=== PATIENT | female | born 1980 | race African-American/Black ===

== ENCOUNTER 2017-07-05 19:47 | Inpatient (IN) ==
[2017-07-05] MEDS ORDERED: cefTRIAXone 1,000 MG in SODIUM CHLORIDE 0.9% 100 ML IV STA (22:15)
[2017-07-05] MEDS ORDERED: methylPREDNISolone SOD SUC 125 MG/2 ML VIAL IV STA (22:15)
[2017-07-05] MEDS ORDERED: FUROSEMIDE 20 MG/2 ML VIAL IV STA (22:16)
[2017-07-05] MEDS ORDERED: ALBUTEROL 2.5 MG/3 ML NEB RESP TX SCH (22:30)
[2017-07-05] MEDS ORDERED: ALBUTEROL 2.5 MG/3 ML NEB RESP TX ONE ×4 (23:20→23:21)
[2017-07-05 23:24] LABS: Basophils % 0.4 % (0.0-0.8); Eosinophils % 20.2 % (0.00-10.9); Hematocrit 45.2 VOL% (35.7-47.0); Hemoglobin 15.1 GM/DL (12.0-16.0); Immature Granulocytes % 0.3 %; Immature Granulocytes Absolute 0.03 #; Lymphocytes # 2.9 10*3/uL (1.4-4.0); Lymphocytes % 28.5 % (21.3-54.2); Mean Corpuscular HGB Conc 33.4 GM/DL (32-36); Mean Corpuscular Hemoglobin 30 PG (27-34); Mean Corpuscular Volume 90.4 FL (87-102); Monocytes # 0.9 10*3/uL (0.11-0.8); Monocytes % 8.4 % (1.7-12.7); Neutrophils # 4.3 10*3/uL (1.4-7.4); Neutrophils % 42.2 % (38.7-73.9); Platelet Count 332 T/CUMM (130-400); Red Cell Distribution Width 13.5 % (9.3-17.3); White Blood Count 10.1 T/CUMM (4-12)
[2017-07-05 23:38] LABS: PT Patient Result 10.5 SECS
[2017-07-05 23:45] LABS: Alanine Aminotransferase 44 U/L (13-56); Albumin 3.8 G/DL (3.4-5.0); Alkaline Phosphatase 81 U/L (45-117); Aspartate Amino Transferase 63 U/L (0-37); Bilirubin,Total < 0.39 MG/DL (0.2-1.0); Blood Urea Nitrogen 13 MG/DL (7-18); Calcium 9.3 MG/DL (8.5-10.1); Glucose 164 MG/DL (74-106); Osmolality,Calculated 276.8 MOS/KG (273-304); Potassium 3.8 MMOL/L (3.5-5.1); Sodium 137 MMOL/L (136-145); Total Protein 8.1 G/DL (6.4-8.3); Troponin I Only 0.027 NG/ML (0.00-0.045)
[2017-07-06 00:43] LABS: Eosinophils 15 % (0-10); Lymphocytes 28 % (20-55); Segmented Neutrophils 50 % (50-85); Total Cells Counted 100
[2017-07-06 00:47] LABS: Platelet Estimate Adequate; Stomatocytes Few
[2017-07-06 01:17] LABS: Barbiturates Screen,Urine Negative (Negative); Benzodiazepines Screen,Urine Negative (Negative); Cannabinoid Screen,Urine Negative (Negative); Opiate Screen,Urine Negative (Negative); Phencyclidine Screen,Urine Negative (Negative)
[2017-07-06 01:18] LABS: Apearance,Urine Slightly Hazy (Clear); Bacteria,Urine Occasional /HPF (Few); Bilirubin,Urine Negative (Negative); Blood, Urine Negative (Negative); Glucose,Urine (UA) Negative (Negative); Ketones,Urine Negative (Negative); Mucus,Urine Occasional /LPF (Occasional); Nitrite,Urine Negative (Negative); Protein,Urine Negative; RBC,Urine <1 /HPF (0-4); Squamous Epithelial Cell,Urine Occasional /HPF (0-10); Urine Color Yellow (Yellow); Urine Specific Gravity 1.018 (1.001-1.035); Urine Urobilinogen < 2.0 EU/DL (0.2-1.0); WBC,Urine 1 /HPF (0-6)
[2017-07-06] MEDS ORDERED: ALBUTEROL/IPRATROPIUM 3 ML NEB RESP TX PRN (03:49)
[2017-07-06] MEDS ORDERED: SODIUM CHLORIDE 0.9% 500 ML IV ONE (03:49)
[2017-07-06] MEDS ORDERED: MORPHINE 2 MG/1 ML SYRINGE IV PRN (03:49)
[2017-07-06] MEDS ORDERED: ONDANSETRON 4 MG/2 ML VIAL IV PRN (03:49)
[2017-07-06] MEDS ORDERED: methylPREDNISolone SOD SUC 40 MG/1 ML VIAL ONE (04:04)
[2017-07-06] MEDS ORDERED: ENOXAPARIN 40 MG/0.4 ML SYRINGE ONE (04:04)
[2017-07-06] MEDS: methylPREDNISolone SOD SUC 40 MG/1 ML VIAL IV SCH ×3 (04:15→20:41)
[2017-07-06] MEDS: ENOXAPARIN 40 MG/0.4 ML SYRINGE SUBCUT SCH (04:16)
[2017-07-06] MEDS: SODIUM CHLORIDE 0.9% 1,000 ML IV SCH ×2 (04:16→16:27)
[2017-07-06] MEDS: ALBUTEROL/IPRATROPIUM 3 ML NEB RESP TX SCH ×6 (04:45→23:17)
[2017-07-06] MEDS ORDERED: CHLORTHALIDONE 50 MG TABLET PO SCH (09:00)
[2017-07-06] MEDS: DOCUSATE SODIUM 100 MG CAPSULE PO SCH ×2 (09:58→20:41)
[2017-07-06] MEDS: MONTELUKAST 10 MG TABLET PO SCH (09:58)
[2017-07-06] MEDS: CHLORTHALIDONE 25 MG TABLET PO SCH (09:58)
[2017-07-06] MEDS ORDERED: PANTOPRAZOLE 40 MG TABLET PO ONE (10:01)
[2017-07-06] MEDS: PANTOPRAZOLE 40 MG TABLET PO SCH (10:03)
[2017-07-07] MEDS: ALBUTEROL/IPRATROPIUM 3 ML NEB RESP TX SCH ×5 (02:13→19:11)
[2017-07-07] MEDS: SODIUM CHLORIDE 0.9% 1,000 ML IV SCH ×4 (02:50→21:29)
[2017-07-07] MEDS: methylPREDNISolone SOD SUC 40 MG/1 ML VIAL IV SCH ×3 (04:44→16:42)
[2017-07-07] MEDS: ENOXAPARIN 40 MG/0.4 ML SYRINGE SUBCUT SCH (04:45)
[2017-07-07] MEDS: PANTOPRAZOLE 40 MG TABLET PO SCH (08:37)
[2017-07-07] MEDS: MONTELUKAST 10 MG TABLET PO SCH (08:37)
[2017-07-07] MEDS: CHLORTHALIDONE 25 MG TABLET PO SCH (08:37)
[2017-07-07] MEDS: DOCUSATE SODIUM 100 MG CAPSULE PO SCH ×2 (08:37→21:15)
[2017-07-07] MEDS: INSULIN REGULAR 100 UNIT/ML SUBCUT SCH ×3 (11:40→21:15)
[2017-07-08] MEDS: ALBUTEROL/IPRATROPIUM 3 ML NEB RESP TX SCH ×3 (00:34→07:02)
[2017-07-08] MEDS: methylPREDNISolone SOD SUC 40 MG/1 ML VIAL IV SCH ×2 (01:59→08:55)
[2017-07-08 05:44] LABS: Basophils % 0.1 % (0.0-0.8); Hematocrit 41.4 VOL% (35.7-47.0); Hemoglobin 13.8 GM/DL (12.0-16.0); Immature Granulocytes % 0.7 %; Lymphocytes # 1.1 10*3/uL (1.4-4.0); Lymphocytes % 7.1 % (21.3-54.2); Mean Corpuscular HGB Conc 33.3 GM/DL (32-36); Mean Corpuscular Hemoglobin 30 PG (27-34); Mean Corpuscular Volume 90.8 FL (87-102); Mean Platelet Volume 10.9 FL (9.6-12.0); Monocytes # 0.8 10*3/uL (0.11-0.8); Monocytes % 5.4 % (1.7-12.7); Neutrophils % 86.7 % (38.7-73.9); Platelet Count 289 T/CUMM (130-400); Red Blood Count 4.56 MC/CUMM (3.8-5.5); Red Cell Distribution Width 13.6 % (9.3-17.3)
[2017-07-08 06:20] LABS: Calcium 9.1 MG/DL (8.5-10.1); Osmolality,Calculated 282.8 MOS/KG (273-304)
[2017-07-08 08:21] VITALS: BP 109/64
[2017-07-08] MEDS: MONTELUKAST 10 MG TABLET PO SCH (08:54)
[2017-07-08] MEDS: PANTOPRAZOLE 40 MG TABLET PO SCH (08:54)
[2017-07-08] MEDS: CHLORTHALIDONE 25 MG TABLET PO SCH (08:54)
[2017-07-08] MEDS: DOCUSATE SODIUM 100 MG CAPSULE PO SCH (08:54)
[2017-07-08] MEDS: INSULIN REGULAR 100 UNIT/ML SUBCUT SCH (08:54)
[2017-07-08] MEDS: ENOXAPARIN 40 MG/0.4 ML SYRINGE SUBCUT SCH (08:58)
[2017-07-08] MEDS ORDERED: AZITHROMYCIN 250 MG TABLET PO SCH (09:00)
[2017-07-08] MEDS: SODIUM CHLORIDE 0.9% 1,000 ML IV SCH (09:53)
== END 2017-07-08 12:05 | disposition home or self-care (01) | DRG 202 ==
LOC: N.ED 19:47 → SUATTDRO 07-06 02:55 → N.EDINP 07-06 02:55 → N.2E 07-06 14:33
PROVIDERS: ADMIT Internal Medicine Infectious Disease; ATTEND Internal Medicine